=== PATIENT | male | born 1945 | race Two or more races ===

== ENCOUNTER 2025-04-05 12:30 | Emergency (ER) | payer MEDICARE ==
[~2025-04-05] VITALS: Ht 167.6 cm; Wt 74.5 kg
[2025-04-05 12:37] VITALS: TEMP 98.2
[2025-04-05 13:12] LABS: COVID AG,FIA SOURCE NASAL SWAB
[2025-04-05] MEDS: ACETAMINOPHEN 500 MG TABLET PO ONE (13:39)
[2025-04-05] MEDS: GuaiFENesin/D-METHORPHAN [SUGAR-FREE] 200-20MG/10 ML SYRUP UDCUP PO ONE (13:39)
[2025-04-05 14:18] LABS: SARS-COV2 (COVID) ANTIGEN,FIA Negative (Negative)
[2025-04-05 14:19] LABS: INFLUENZA TYPE A NEGATIVE FOR TYPE A (NEGATIVE); INFLUENZA TYPE B NEGATIVE FOR TYPE B (NEGATIVE)
[2025-04-05] MEDS ORDERED: GUAIFDM PO (15:14)
[2025-04-05] MEDS ORDERED: BENZ-227 PO (15:14)
[2025-04-05] MEDS ORDERED: IBUP-1554 PO (15:14)
[2025-04-05] MEDS ORDERED: ACET-66 PO (15:14)
[2025-04-05 15:23] VITALS: BP 132/82; PULSE 59; RESP 18; O2SAT 96
== END 2025-04-05 15:25 | disposition home or self-care (01) ==
LOC: EMS 12:30
DX: J20.9 Acute bronchitis, unspecified (principal); J06.9 Acute upper respiratory infection, unspecified; R05.9 Cough, unspecified; Z20.822 Contact with and (suspected) exposure to COVID-19
CPT/HCPCS: 71045; 82962; 87804; 99284